=== PATIENT | female | born 1950 | race Caucasian/White ===

== ENCOUNTER → 2022-03-11 | Outpatient (CLI) | payer MEDICARE, OTHER | LOC: RAD 14:42 | PROVIDERS: ATTEND Internal Medicine Critical Care Medicine | DX: J44.9 Chronic obstructive pulmonary disease, unspecified (principal) | CPT/HCPCS: 71046 ==

== ENCOUNTER → 2022-04-08 | Outpatient (CLI) | payer MEDICARE ==
[~2022-04-08] MED LIST: IOPAMIDOL 370 MG/ML 100 ML INFUS..BTL INJ ONE; SODIUM CHLORIDE 0.9% 500ML 500 ML ONE
[2022-04-08 09:45] LABS: CREATININE, SERUM 1.29 mg/dL (0.57-1.11)
== END ==
LOC: CT 08:45
PROVIDERS: ATTEND Internal Medicine Critical Care Medicine
DX: R06.00 Dyspnea, unspecified (principal); R91.8 Other nonspecific abnormal finding of lung field
CPT/HCPCS: 36415; 71260; 82565; 84520; 96360; J7040; Q9967

== ENCOUNTER 2022-10-10 13:54 | Inpatient (IN) | payer MEDICARE ==
[~2022-10-10] VITALS: Ht 162.6 cm; Wt 89.8 kg
[2022-10-10] MEDS ORDERED: SODIUM CHLORIDE 0.9% 1000ML 1,000 ML IV STA (14:16)
[2022-10-10 14:22] LABS: BASOPHILS % 0.5 % (0.0-1.0); EOSINOPHILS # (AUTO) 0.2 (0.0-0.4); EOSINOPHILS % 2.6 % (0.0-6.0); HEMATOCRIT 36.3 % (34.2-44.1); HEMOGLOBIN 11.4 g/dL (12.0-16.0); LYMPHOCYTES # (AUTO) 0.9 (1.0-3.2); LYMPHOCYTES % 14.2 % (18.0-39.1); MEAN CORPUSCULAR HEMOGLOBIN 29.2 pg (28-32); MEAN CORPUSCULAR HGB CONC 31.4 g/dL (31-35); MEAN CORPUSCULAR VOLUME 93.1 fL (81-99); MONOCYTES # (AUTO) 0.4 (0.2-0.8); MONOCYTES % 6.3 % (4.4-11.3); NEUTROPHILS # (AUTO) 4.7 (2.1-6.9); NEUTROPHILS % 75.8 % (38.7-80.0); PLATELET COUNT 170 x10e3/uL (140-360); RED CELL DISTRIBUTION WIDTH 14.4 % (11.7-14.4)
[2022-10-10 14:33] LABS: INR 0.99; PROTHROMBIN TIME 13.6 seconds (11.9-14.5)
[2022-10-10 14:34] LABS: PARTIAL THROMBOPLASTIN TIME 27.4 seconds (23.8-35.5)
[2022-10-10 14:43] LABS: ALBUMIN 3.8 g/dL (3.5-5.0); ALBUMIN/GLOBULIN RATIO 1.5 (0.8-2.0); ANION GAP 16.3 mmol/L (8-16); CALCIUM 9.1 mg/dL (8.4-10.2); CREATININE, SERUM 2.54 mg/dL (0.57-1.11)
[2022-10-10 14:45] LABS: POTASSIUM 5.3 mmol/L (3.5-5.1)
[2022-10-10 14:50] LABS: CREATINE KINASE MB 4.4 ng/mL (0-5.0)
[2022-10-10 15:58] LABS: CLARITY,URINE SL CLOUDY (CLEAR); COLOR,URINE YELLOW (YELLOW); KETONES,URINE NEGATIVE (NEGATIVE); LEUKOCYTE ESTERASE ,URINE NEGATIVE (NEGATIVE); NITRITE,URINE NEGATIVE (NEGATIVE); PROTEIN,URINE DIPSTICK NEGATIVE (NEGATIVE); URINE UROBILINOGEN 0.2 mg/dL (0.2 - 1)
[2022-10-10 16:00] VITALS: BP 125/72
[2022-10-10 16:12] LABS: BACTERIA,URINE FEW /HPF; EPITHELIAL CELLS,URINE MODERATE /LPF; WBC,URINE (MAN) 0-5 /HPF (0-5)
[2022-10-10 16:13] LABS: AMORPHOUS SEDIMENT,URINE MODERATE (FEW)
[2022-10-10] MEDS: SODIUM CHLORIDE 0.9% 1000ML 1,000 ML IV SCH (16:30)
[2022-10-10] MEDS ORDERED: ONDANSETRON HCL INJ 2MG/ML 2ML 2 MG/ML VIAL IV PRN (16:30)
[2022-10-10 18:17] VITALS: BP 125/72
[2022-10-10 19:46] VITALS: BP 125/72
[2022-10-10 20:15] VITALS: BP 135/62
[2022-10-10 20:36] LABS: ANION GAP 11.5 mmol/L (8-16); CALCIUM 8.9 mg/dL (8.4-10.2); CREATININE, SERUM 2.14 mg/dL (0.57-1.11); POTASSIUM 5.5 mmol/L (3.5-5.1)
[2022-10-10 20:45] VITALS: BP 125/72
[2022-10-10 20:59] LABS: CREATINE KINASE MB 5.7 ng/mL (0-5.0)
[2022-10-10] MEDS ORDERED: VASOTEC5 MG PO (23:40)
[2022-10-10] MEDS ORDERED: PRAVASTATIN SOD80 MG (23:40)
[2022-10-10] MEDS ORDERED: OMEPRAZOLE40 MG PO (23:40)
[2022-10-10] MEDS ORDERED: BACTRIM 400-801 EACH PO (23:40)
[2022-10-10] MEDS ORDERED: ASPIRIN81 MG PO (23:40)
[2022-10-10] MEDS ORDERED: FARXIGA5 MG (23:40)
[2022-10-10] MEDS ORDERED: NEURONTIN300 MG PO (23:40)
[2022-10-10] MEDS ORDERED: METOPROLOL TART50 MG PO (23:40)
[2022-10-10] MEDS ORDERED: STIOLTO RESPIMAT4 GM (23:40)
[2022-10-10] MEDS ORDERED: VITAMIN D31 ML (23:47)
[2022-10-11] VITALS (8 sets, daily range): BP systolic 115–159; BP diastolic 56–74
[2022-10-11] MEDS: SODIUM CHLORIDE 0.9% 1000ML 1,000 ML IV SCH ×2 (05:58→08:30)
[2022-10-11 06:04] LABS: BASOPHILS % 0.7 % (0.0-1.0); EOSINOPHILS # (AUTO) 0.1 (0.0-0.4); EOSINOPHILS % 3.1 % (0.0-6.0); HEMATOCRIT 33.1 % (34.2-44.1); HEMOGLOBIN 10.5 g/dL (12.0-16.0); LYMPHOCYTES % 22.9 % (18.0-39.1); MEAN CORPUSCULAR HEMOGLOBIN 29.3 pg (28-32); MEAN CORPUSCULAR HGB CONC 31.7 g/dL (31-35); MEAN CORPUSCULAR VOLUME 92.5 fL (81-99); MONOCYTES # (AUTO) 0.3 (0.2-0.8); MONOCYTES % 7.1 % (4.4-11.3); NEUTROPHILS % 65.5 % (38.7-80.0); PLATELET COUNT 127 x10e3/uL (140-360); RED BLOOD COUNT 3.58 x10e6/uL (3.6-5.1); RED CELL DISTRIBUTION WIDTH 14.2 % (11.7-14.4)
[2022-10-11 06:34] LABS: ALBUMIN 3.3 g/dL (3.5-5.0); ALBUMIN/GLOBULIN RATIO 1.4 (0.8-2.0); ANION GAP 12.3 mmol/L (8-16); CALCIUM 8.6 mg/dL (8.4-10.2); CREATININE, SERUM 1.63 mg/dL (0.57-1.11); MAGNESIUM 2.4 MG/DL (1.3-2.1); PHOSPHORUS 3.7 MG/DL (2.3-4.7); POTASSIUM 5.3 mmol/L (3.5-5.1)
[2022-10-11 06:55] LABS: FERRITIN 82.84 ng/mL (4.63-204.00); THYROID STIMULATING HORMONE 0.816 uIU/mL (0.350-4.940)
[2022-10-11 07:05] LABS: CREATINE KINASE 87 IU/L (29-168)
[2022-10-11] MEDS ORDERED: SOD POLYSTYRENE SULFONATE SUSP 15 GM/60 ML BTL PO ONE (09:30)
[2022-10-11] MEDS ORDERED: CYANOCOBALAMIN INJ 1,000 MCG/ML VIAL IM ONE (10:45)
[2022-10-11 14:51] LABS: CREATINE KINASE MB 4.1 ng/mL (0-5.0)
[2022-10-11] MEDS: GABAPENTIN 300 MG CAP PO SCH ×2 (17:07→21:47)
[2022-10-11] MEDS: METOPROLOL TARTRATE 50 MG TAB PO SCH (17:09)
[2022-10-12 00:20] VITALS: BP 149/57
[2022-10-12 04:00] VITALS: BP 157/58
[2022-10-12 07:04] LABS: BASOPHILS % 0.9 % (0.0-1.0); EOSINOPHILS # (AUTO) 0.2 (0.0-0.4); EOSINOPHILS % 3.3 % (0.0-6.0); HEMATOCRIT 33.8 % (34.2-44.1); HEMOGLOBIN 10.9 g/dL (12.0-16.0); MEAN CORPUSCULAR HEMOGLOBIN 29.5 pg (28-32); MEAN CORPUSCULAR HGB CONC 32.2 g/dL (31-35); MEAN CORPUSCULAR VOLUME 91.6 fL (81-99); MONOCYTES # (AUTO) 0.4 (0.2-0.8); MONOCYTES % 8.7 % (4.4-11.3); NEUTROPHILS # (AUTO) 2.8 (2.1-6.9); NEUTROPHILS % 63.4 % (38.7-80.0); PLATELET COUNT 132 x10e3/uL (140-360); RED BLOOD COUNT 3.69 x10e6/uL (3.6-5.1)
[2022-10-12] MEDS ORDERED: PANTOPRAZOLE SOD 40 MG TABEC PO SCH (07:30)
[2022-10-12 07:33] LABS: ALBUMIN 3.3 g/dL (3.5-5.0); ALBUMIN/GLOBULIN RATIO 1.4 (0.8-2.0); ANION GAP 12.4 mmol/L (8-16); CALCIUM 8.8 mg/dL (8.4-10.2); CREATININE, SERUM 1.2 mg/dL (0.57-1.11); MAGNESIUM 2.3 MG/DL (1.3-2.1); POTASSIUM 4.4 mmol/L (3.5-5.1)
[2022-10-12 08:38] VITALS: BP 120/68
[2022-10-12 08:39] VITALS: BP 120/68
[2022-10-12] MEDS ORDERED: CYANOCOBALAMIN 1,000 MCG TAB PO SCH (09:00)
[2022-10-12] MEDS ORDERED: ASPIRIN 81 MG CHEW TAB PO SCH (09:00)
[2022-10-12] MEDS: GABAPENTIN 300 MG CAP PO SCH (09:53)
[2022-10-12] MEDS: METOPROLOL TARTRATE 50 MG TAB PO SCH (09:54)
[2022-10-12] MEDS ORDERED: VITAMIN B-121000 MCG PO (11:59)
[2022-10-12 12:40] VITALS: BP 125/56
== END 2022-10-12 14:43 | disposition home or self-care (01) | DRG 684 ==
LOC: ER 14:13 → ERHOLD 16:22 → MED/SURG3 17:55
PROVIDERS: ADMIT Internal Medicine; ATTEND Internal Medicine
DX: N17.9 Acute kidney failure, unspecified (principal); I12.9 Hypertensive chronic kidney disease with stage 1 through stage 4 chronic kidney disease, or unspecified chronic kidney disease; E11.22 Type 2 diabetes mellitus with diabetic chronic kidney disease; N18.32 Chronic kidney disease, stage 3b; J43.9 Emphysema, unspecified; E87.5 Hyperkalemia; D63.1 Anemia in chronic kidney disease; K21.9 Gastro-esophageal reflux disease without esophagitis; E78.5 Hyperlipidemia, unspecified; E66.09 Other obesity due to excess calories; Z68.34 Body mass index [BMI] 34.0-34.9, adult; Z87.891 Personal history of nicotine dependence; Z59.6 Low income; Z79.82 Long term (current) use of aspirin; Z20.822 Contact with and (suspected) exposure to COVID-19
CPT/HCPCS: 0223U; 36415; 71045; 71046; 76770; 80048; 80053; 81001; 82550; 82553; 82607; 82728; 82747; 82948; 83540; 83735; 83880; 84100; 84443; 84466; 84484; 85025; 85045; 85610; 85730; 93005; 94799; 99284; J3420; J7030

== ENCOUNTER 2024-09-19 10:19 | Emergency (ER) | payer MEDICARE ==
[~2024-09-19] VITALS: Ht 162.6 cm; Wt 85.3 kg
[~2024-09-19 10:19] MED LIST changes: +ASPIRIN81 MG PO; +BACTRIM 400-801 EACH PO; +CYCLOBENZAPRINE10 MG PO; +FARXIGA5 MG; -IOPAMIDOL 370 MG/ML 100 ML INFUS..BTL INJ ONE; +METOPROLOL TART50 MG PO; +NEURONTIN300 MG PO; +OMEPRAZOLE40 MG PO; +PRAVASTATIN SOD80 MG; -SODIUM CHLORIDE 0.9% 500ML 500 ML ONE; +STIOLTO RESPIMAT4 GM; +VASOTEC5 MG PO; +VITAMIN B-121000 MCG PO; +VITAMIN D31 ML
[2024-09-19 10:22] VITALS: PULSE 91; RESP 15; TEMP 97.7; O2SAT 96
[2024-09-19 12:01] LABS: BASOPHILS % 0.7 % (0.0-1.0); HEMATOCRIT 36.3 % (34.2-44.1); HEMOGLOBIN 12.3 g/dL (12.0-16.0); LYMPHOCYTES # (AUTO) 0.3 (1.0-3.2); LYMPHOCYTES % 6.4 % (18.0-39.1); MEAN CORPUSCULAR HEMOGLOBIN 30.5 pg (28-32); MEAN CORPUSCULAR HGB CONC 33.9 g/dL (31-35); MEAN CORPUSCULAR VOLUME 90.1 fL (81-99); MONOCYTES # (AUTO) 0.4 (0.2-0.8); MONOCYTES % 9.7 % (4.4-11.3); NEUTROPHILS # (AUTO) 3.8 (2.1-6.9); PLATELET COUNT 134 x10e3/uL (140-360); RED BLOOD COUNT 4.03 x10e6/uL (3.6-5.1); RED CELL DISTRIBUTION WIDTH 12.3 % (11.7-14.4); WHITE BLOOD COUNT 4.54 x10e3/uL (4.8-10.8)
[2024-09-19] MEDS: SODIUM CHLORIDE 0.9% 1000ML 1,000 ML IV SCH (12:07)
[2024-09-19] MEDS: ONDANSETRON HCL INJ 2MG/ML 2ML 2 MG/ML VIAL IV STA (12:07)
[2024-09-19 12:24] LABS: CORONAVIRUS COVID-19 AG NEGATIVE (NEGATIVE); INFLUENZA A AG NEGATIVE (NEGATIVE); INFLUENZA B AG NEGATIVE (NEGATIVE)
[2024-09-19 12:27] LABS: INR 1.1; PROTHROMBIN TIME 14.9 seconds (11.9-14.5)
[2024-09-19 12:28] LABS: PARTIAL THROMBOPLASTIN TIME 29.4 seconds (23.8-35.5)
[2024-09-19 12:36] LABS: ALBUMIN 3.9 g/dL (3.5-5.0); ALBUMIN/GLOBULIN RATIO 1.4 (0.8-2.0); ANION GAP 19.8 mmol/L (8-16); BILIRUBIN,TOTAL 0.8 mg/dL (0.2-1.2); CALCIUM 9.4 mg/dL (8.4-10.2); CREATININE, SERUM 1.59 mg/dL (0.57-1.11); POTASSIUM 3.8 mmol/L (3.5-5.1); TOTAL PROTEIN 6.7 g/dL (6.5-8.1)
[2024-09-19 12:42] LABS: TROPONIN I 0.008 ng/mL (0-0.300)
[2024-09-19] MEDS ORDERED: DICYCLOMINE HCL10 MG PO (14:03)
[2024-09-19] MEDS ORDERED: ONDANSETRON ODT4 MG PO (14:03)
== END 2024-09-19 14:44 | disposition home or self-care (01) ==
LOC: ER 11:06
DX: R11.2 Nausea with vomiting, unspecified (principal); R19.7 Diarrhea, unspecified; I12.9 Hypertensive chronic kidney disease with stage 1 through stage 4 chronic kidney disease, or unspecified chronic kidney disease; E11.22 Type 2 diabetes mellitus with diabetic chronic kidney disease; E11.65 Type 2 diabetes mellitus with hyperglycemia; N18.9 Chronic kidney disease, unspecified; J44.9 Chronic obstructive pulmonary disease, unspecified; E78.5 Hyperlipidemia, unspecified; K21.9 Gastro-esophageal reflux disease without esophagitis; G47.30 Sleep apnea, unspecified; R94.31 Abnormal electrocardiogram [ECG] [EKG]
CPT/HCPCS: 36415; 71045; 80053; 82550; 83735; 83880; 84484; 85025; 85610; 85730; 87428; 93005; 99284; J2405; J2470; J7030